=== PATIENT | female | born 1990 | race Caucasian/White ===

== ENCOUNTER 2017-01-07 20:32 | Emergency (ER) | payer OTHER ==
[~2017-01-07] VITALS: Ht 160 cm; Wt 68.2 kg
[~2017-01-07 20:32] MED LIST: BACL10TA PO; DIVA500T52 PO; DOCU250C91 PO; HYDR-4031 PO; LEVO50TA13 PO; TRAZ150 PO
[2017-01-07 21:03] LABS: BASOPHILS % (AUTO) 0.3 % (0.0-2.0); EOSINOPHILS % (AUTO) 0.1 % (1.0-6.0); HEMATOCRIT 43.7 % (36-46); HEMOGLOBIN 14.6 g/dL (12.0-16.0); LYMPHOCYTES # (AUTO) 1.6 K/uL (1.0-4.8); LYMPHOCYTES % (AUTO) 15.4 % (22.0-44.0); MEAN CORPUSCULAR HEMOGLOBIN 30.9 pg (26.0-34.0); MEAN CORPUSCULAR HGB CONC 33.3 G/dL (31.0-37.0); MEAN CORPUSCULAR VOLUME 93 fL (80-100); MONOCYTES # (AUTO) 1.2 K/uL (0.1-1.0); MONOCYTES % (AUTO) 11.3 % (2.0-9.0); NEUTROPHILS # (AUTO) 7.6 K/uL (1.8-7.7); NEUTROPHILS % (AUTO) 72.9 % (40.0-70.0); PLATELET COUNT (AUTO) 177 K/uL (150-450); RED BLOOD CELL COUNT(AUTO) 4.71 MIL/uL (4.00-5.20); RED CELL DISTRIBUTION WIDTH 13.9 % (11.5-14.5); WHITE BLOOD COUNT (AUTO) 10.4 K/uL (4.5-11.0)
[2017-01-07 21:14] LABS: ANION GAP 9 mmol/L (8-16); CALCIUM, TOTAL 8.8 mg/dL (8.8-10.5); CARBON DIOXIDE 25 mmol/L (22-29); CHLORIDE 108 mmol/L (98-107); CREATININE 1.43 mg/dL (0.60-1.30); GLOMERULAR FILTR. RATE CALC 44 mL/min (>60); POTASSIUM 4.9 mmol/L (3.5-5.1); SODIUM SERUM 142 mmol/L (136-145); UREA NITROGEN, BLOOD 26 mg/dL (7-18)
[2017-01-07 21:20] LABS: ALANINE AMINOTRANSFERASE 25 U/L (12-78); ALBUMIN 3.3 g/dL (3.4-5.0); ASPARTATE AMINOTRANSFERASE 18 U/L (15-37); BILIRUBIN,TOTAL 0.2 mg/dL (0.1-1.0); TOTAL PROTEIN, SERUM 6.8 g/dL (6.4-8.2); VALPROIC ACID 60 mcg/mL (50-100)
[2017-01-07] MEDS ORDERED: BENZ1TAB10 PO (21:30)
[2017-01-07] MEDS ORDERED: MEDR150V IM (21:30)
[2017-01-07] MEDS ORDERED: ONDA4 PO (21:30)
[2017-01-07] MEDS ORDERED: DOXY50CA7 PO (21:30)
[2017-01-07] MEDS ORDERED: TOPI25 PO (21:30)
[2017-01-07] MEDS ORDERED: ALBU8.5H IH (21:30)
[2017-01-07] MEDS ORDERED: MOME13HF IH (21:30)
[2017-01-07] MEDS ORDERED: QUET200T PO (21:30)
[2017-01-07] MEDS ORDERED: CETI-193 PO (21:30)
[2017-01-07] MEDS ORDERED: LOPE2 PO (21:30)
[2017-01-07] MEDS ORDERED: FLUV50 PO (21:30)
[2017-01-07] MEDS ORDERED: FLUT16H NASAL (21:30)
[2017-01-07] MEDS ORDERED: PANT20TA12 PO (21:30)
[2017-01-07 22:13] VITALS: BP 119/80
[2017-01-07] MEDS ORDERED: LORazepam 2 MG TABLET PO ONE (22:30)
== END 2017-01-07 23:14 | disposition home or self-care (01) ==
LOC: EMS 20:34
DX: F69 Unspecified disorder of adult personality and behavior (principal); R45.4 Irritability and anger; F41.9 Anxiety disorder, unspecified; F31.9 Bipolar disorder, unspecified; E78.00 Pure hypercholesterolemia, unspecified; I10 Essential (primary) hypertension; F20.9 Schizophrenia, unspecified; Z88.8 Allergy status to other drugs, medicaments and biological substances; Z91.013 Allergy to seafood
CPT/HCPCS: 36415; 80053; 80164; 80307; 84703; 85025; 99285; G0480

== ENCOUNTER 2017-07-17 07:09 | Inpatient (IN) | payer MEDICAID, OTHER ==
[~2017-07-17] VITALS: Ht 160 cm; Wt 88.9 kg
[~2017-07-17 07:09] MED LIST changes: +ALBU8.5H8 IH; +BENZ1TAB10 PO; +CETI-193 PO; +DOXY50CA7 PO; +FLUT16H NASAL; +FLUV50 PO; +LOPE2 PO; +MEDR150V IM; +MOME13HF IH; +ONDA4 PO; +PANT20TA12 PO; +QUET200T PO; +TOPI25 PO
[2017-07-17] MEDS ORDERED: DOCU250C91 PO (07:27)
[2017-07-17] MEDS ORDERED: ALBU8.5H8 IH (07:27)
[2017-07-17] MEDS ORDERED: MOME13HF IH (07:27)
[2017-07-17] MEDS ORDERED: GABA-531 PO (07:27)
[2017-07-17] MEDS ORDERED: CLOT30SO2 TP (07:27)
[2017-07-17 07:39] LABS: BASOPHILS # (AUTO) 0.04 K/uL (0.00-0.20); BASOPHILS % (AUTO) 0.6 % (0.0-2.0); EOSINOPHILS # (AUTO) 0.02 K/uL (0.00-0.70); EOSINOPHILS % (AUTO) 0.35 % (1.0-6.0); HEMATOCRIT 43.7 % (36-46); HEMOGLOBIN 14.7 g/dL (12.0-16.0); LYMPHOCYTES # (AUTO) 2.2 K/uL (1.0-4.8); LYMPHOCYTES % (AUTO) 36.3 % (22.0-44.0); MEAN CORPUSCULAR HEMOGLOBIN 30.7 pg (26.0-34.0); MEAN CORPUSCULAR HGB CONC 33.7 G/dL (31.0-37.0); MEAN CORPUSCULAR VOLUME 91 fL (80-100); MONOCYTES # (AUTO) 0.5 K/uL (0.1-1.0); MONOCYTES % (AUTO) 7.7 % (2.0-9.0); NEUTROPHILS # (AUTO) 3.3 K/uL (1.8-7.7); PLATELET COUNT (AUTO) 178 K/uL (150-450); RED BLOOD CELL COUNT(AUTO) 4.79 MIL/uL (4.00-5.20); RED CELL DISTRIBUTION WIDTH 12.7 % (11.5-14.5); WHITE BLOOD COUNT (AUTO) 6.1 K/uL (4.5-11.0)
[2017-07-17 08:02] LABS: ANION GAP 10 mmol/L (8-16); CALCIUM, TOTAL 9.1 mg/dL (8.8-10.5); CARBON DIOXIDE 23 mmol/L (22-29); CHLORIDE 111 mmol/L (98-107); CREATININE 1.34 mg/dL (0.60-1.30); GLOMERULAR FILTR. RATE CALC 47 mL/min (>60); POTASSIUM 4.3 mmol/L (3.5-5.1); SODIUM SERUM 144 mmol/L (136-145); UREA NITROGEN, BLOOD 25 mg/dL (7-18)
[2017-07-17 08:03] LABS: ALANINE AMINOTRANSFERASE 19 U/L (12-78); ALBUMIN 3.5 g/dL (3.4-5.0); ASPARTATE AMINOTRANSFERASE 11 U/L (15-37); BILIRUBIN,TOTAL 0.2 mg/dL (0.1-1.0); TOTAL PROTEIN, SERUM 7.3 g/dL (6.4-8.2)
[2017-07-17] MEDS ORDERED: LORazepam 2 MG TABLET PO ONE (10:15)
[2017-07-17] MEDS ORDERED: HALOPERIDOL 5 MG TABLET PO PRN (12:15)
[2017-07-17] MEDS ORDERED: ZOLPIDEM TARTRATE 10 MG TABLET PO PRN (12:15)
[2017-07-17 12:47] LABS: CHOL/HDL RATIO 2.7 (3.9-5.7)
[2017-07-17] MEDS: GABAPENTIN 300 MG CAPSULE PO SCH (15:39)
[2017-07-17] MEDS: DIVALPROEX SODIUM 500 MG ER TABLET PO SCH (18:15)
[2017-07-17 18:26] VITALS: BP 118/91
[2017-07-17] MEDS: TraZODone HCL 150 MG TABLET PO SCH (20:43)
[2017-07-17] MEDS: QUEtiapine FUMARATE 200 MG TABLET PO SCH (20:43)
[2017-07-17] MEDS ORDERED: ALBUTEROL SULFATE HFA 90 MCG/PUFF 8 GM INHALER IH PRN (20:45)
[2017-07-18 06:47] VITALS: BP 120/88
[2017-07-18] MEDS: DIVALPROEX SODIUM 500 MG ER TABLET PO SCH ×2 (09:08→16:36)
[2017-07-18] MEDS: TOPIRAMATE 25 MG TABLET PO SCH (09:08)
[2017-07-18] MEDS: GABAPENTIN 300 MG CAPSULE PO SCH ×3 (09:08→16:36)
[2017-07-18 09:19] VITALS: BP 101/54
[2017-07-18] MEDS ORDERED: IBUPROFEN 400 MG TABLET PO PRN (16:30)
[2017-07-18] MEDS: BENZOCAINE/MENTHOL LOZENGE PO PRN (16:35)
[2017-07-18] MEDS: ALBUTEROL SULFATE HFA 90 MCG/PUFF 8 GM INHALER IH PRN (16:36)
[2017-07-18 17:12] VITALS: BP 100/69
[2017-07-18 18:26] VITALS: BP 106/70
[2017-07-18] MEDS: ACETAMINOPHEN 325 MG TABLET PO PRN (18:26)
[2017-07-18] MEDS: TraZODone HCL 150 MG TABLET PO SCH (20:39)
[2017-07-18] MEDS: QUEtiapine FUMARATE 200 MG TABLET PO SCH (20:39)
[2017-07-19] MEDS: DIVALPROEX SODIUM 500 MG ER TABLET PO SCH ×2 (08:26→16:31)
[2017-07-19] MEDS: GABAPENTIN 300 MG CAPSULE PO SCH ×3 (08:26→16:31)
[2017-07-19] MEDS: TOPIRAMATE 25 MG TABLET PO SCH (08:26)
[2017-07-19 08:41] VITALS: BP 104/67
[2017-07-19] MEDS: ACETAMINOPHEN 325 MG TABLET PO PRN (09:52)
[2017-07-19 09:56] LABS: ALBUMIN 3.7 g/dL (3.4-5.0); BILIRUBIN,TOTAL 0.3 mg/dL (0.1-1.0); CALCIUM, TOTAL 9.1 mg/dL (8.8-10.5); CREATININE 1.51 mg/dL (0.60-1.30); POTASSIUM 4.6 mmol/L (3.5-5.1); THYROID STIMULATING HORMONE 6.42 uIU/mL (0.36-3.74); TOTAL PROTEIN, SERUM 7.8 g/dL (6.4-8.2)
[2017-07-19 16:31] VITALS: BP 115/84
[2017-07-19] MEDS: LORazepam 2 MG TABLET PO PRN (17:38)
[2017-07-19] MEDS: ALBUTEROL SULFATE HFA 90 MCG/PUFF 8 GM INHALER IH PRN (17:39)
[2017-07-19] MEDS: QUEtiapine FUMARATE 200 MG TABLET PO SCH (20:27)
[2017-07-19] MEDS: TraZODone HCL 150 MG TABLET PO SCH (20:27)
[2017-07-20 06:46] VITALS: BP 120/71
[2017-07-20 08:34] VITALS: BP 99/61
[2017-07-20] MEDS: TOPIRAMATE 25 MG TABLET PO SCH (08:37)
[2017-07-20] MEDS: GABAPENTIN 300 MG CAPSULE PO SCH ×3 (08:37→16:38)
[2017-07-20] MEDS: DIVALPROEX SODIUM 500 MG ER TABLET PO SCH ×2 (08:37→16:38)
[2017-07-20] MEDS: LORazepam 2 MG TABLET PO PRN (12:31)
[2017-07-20] MEDS: ALBUTEROL SULFATE HFA 90 MCG/PUFF 8 GM INHALER IH PRN (12:32)
[2017-07-20 16:17] VITALS: BP 97/71
[2017-07-20] MEDS ORDERED: LOPERAMIDE HCL 2 MG CAPSULE PO PRN (17:30)
[2017-07-20] MEDS: TraZODone HCL 150 MG TABLET PO SCH (20:13)
[2017-07-20] MEDS: QUEtiapine FUMARATE 200 MG TABLET PO SCH (20:13)
[2017-07-21 03:55] VITALS: BP 102/74
[2017-07-21] MEDS: ALBUTEROL SULFATE HFA 90 MCG/PUFF 8 GM INHALER IH PRN (04:00)
[2017-07-21 07:20] LABS: CALCIUM, TOTAL 8.9 mg/dL (8.8-10.5); CREATININE 1.48 mg/dL (0.60-1.30); POTASSIUM 4.8 mmol/L (3.5-5.1)
[2017-07-21 08:22] VITALS: BP 117/58
[2017-07-21] MEDS: GABAPENTIN 300 MG CAPSULE PO SCH ×3 (08:32→16:26)
[2017-07-21] MEDS: TOPIRAMATE 25 MG TABLET PO SCH (08:32)
[2017-07-21] MEDS: DIVALPROEX SODIUM 500 MG ER TABLET PO SCH ×2 (08:32→16:26)
[2017-07-21] MEDS: LORazepam 2 MG TABLET PO PRN ×2 (08:33→16:26)
[2017-07-21] MEDS: BENZOCAINE/MENTHOL LOZENGE PO PRN (11:25)
[2017-07-21 16:31] VITALS: BP 110/71
[2017-07-21] MEDS: TraZODone HCL 150 MG TABLET PO SCH (20:15)
[2017-07-21] MEDS: QUEtiapine FUMARATE 200 MG TABLET PO SCH (20:15)
[2017-07-22 06:11] VITALS: BP 112/72
[2017-07-22] MEDS: ACETAMINOPHEN 325 MG TABLET PO PRN (06:54)
[2017-07-22 09:12] VITALS: BP 93/61
[2017-07-22] MEDS ORDERED: ALBU8HFA IH (09:59)
[2017-07-22] MEDS: DIVALPROEX SODIUM 500 MG ER TABLET PO SCH (10:02)
[2017-07-22] MEDS: GABAPENTIN 300 MG CAPSULE PO SCH ×2 (10:02→12:41)
[2017-07-22] MEDS: TOPIRAMATE 25 MG TABLET PO SCH (10:02)
[2017-07-22] MEDS: ALBUTEROL SULFATE HFA 90 MCG/PUFF 8 GM INHALER IH PRN (10:14)
== END 2017-07-22 13:15 | disposition home or self-care (01) | DRG 750 ==
LOC: EMS 07:10 → B3A 17:14
PROVIDERS: ADMIT Psychiatry & Neurology Psychiatry; ATTEND Psychiatry & Neurology Psychiatry
DX: F20.0 Paranoid schizophrenia (principal); N17.9 Acute kidney failure, unspecified; I10 Essential (primary) hypertension; E03.9 Hypothyroidism, unspecified; E78.00 Pure hypercholesterolemia, unspecified; F31.9 Bipolar disorder, unspecified; J45.909 Unspecified asthma, uncomplicated; F19.10 Other psychoactive substance abuse, uncomplicated; Z88.8 Allergy status to other drugs, medicaments and biological substances
CPT/HCPCS: 84439; 84443; 99285; G0480; J3535

== ENCOUNTER 2017-08-12 16:02 | Inpatient (IN) | payer MEDICAID, OTHER ==
[~2017-08-12] VITALS: Ht 160 cm; Wt 91.3 kg
[~2017-08-12 16:02] MED LIST changes: -ALBU8.5H8 IH; +ALBU8HFA IH; -BACL10TA PO; -BENZ1TAB10 PO; -CETI-193 PO; -DOCU250C91 PO; -DOXY50CA7 PO; -FLUT16H NASAL; -FLUV50 PO; +GABA-531 PO; -HYDR-4031 PO; -LEVO50TA13 PO; -LOPE2 PO; -MEDR150V IM; -MOME13HF IH; -ONDA4 PO; -PANT20TA12 PO
[2017-08-12] MEDS ORDERED: QUET200T PO (16:26)
[2017-08-12 16:39] LABS: BASOPHILS # (AUTO) 0.02 K/uL (0.00-0.20); BASOPHILS % (AUTO) 0.2 % (0.0-2.0); EOSINOPHILS # (AUTO) 0.03 K/uL (0.00-0.70); EOSINOPHILS % (AUTO) 0.33 % (1.0-6.0); HEMATOCRIT 43.1 % (36-46); HEMOGLOBIN 14.3 g/dL (12.0-16.0); LYMPHOCYTES # (AUTO) 2.8 K/uL (1.0-4.8); LYMPHOCYTES % (AUTO) 30.1 % (22.0-44.0); MEAN CORPUSCULAR HEMOGLOBIN 30.6 pg (26.0-34.0); MEAN CORPUSCULAR HGB CONC 33.2 G/dL (31.0-37.0); MEAN CORPUSCULAR VOLUME 92 fL (80-100); MONOCYTES # (AUTO) 0.8 K/uL (0.1-1.0); MONOCYTES % (AUTO) 9.1 % (2.0-9.0); NEUTROPHILS # (AUTO) 5.5 K/uL (1.8-7.7); NEUTROPHILS % (AUTO) 60.3 % (40.0-70.0); PLATELET COUNT (AUTO) 199 K/uL (150-450); RED BLOOD CELL COUNT(AUTO) 4.67 MIL/uL (4.00-5.20); WHITE BLOOD COUNT (AUTO) 9.2 K/uL (4.5-11.0)
[2017-08-12 16:55] LABS: ANION GAP 10 mmol/L (8-16); CALCIUM, TOTAL 8.7 mg/dL (8.8-10.5); CARBON DIOXIDE 25 mmol/L (22-29); CHLORIDE 107 mmol/L (98-107); CREATININE 1.64 mg/dL (0.60-1.30); GLOMERULAR FILTR. RATE CALC 37 mL/min (>60); POTASSIUM 4.5 mmol/L (3.5-5.1); SODIUM SERUM 142 mmol/L (136-145); UREA NITROGEN, BLOOD 28 mg/dL (7-18)
[2017-08-12 16:58] LABS: ALANINE AMINOTRANSFERASE 16 U/L (12-78); ALBUMIN 3.6 g/dL (3.4-5.0); ASPARTATE AMINOTRANSFERASE 22 U/L (15-37); BILIRUBIN,TOTAL 0.2 mg/dL (0.1-1.0); TOTAL PROTEIN, SERUM 7.4 g/dL (6.4-8.2)
[2017-08-12] MEDS ORDERED: LORazepam 1 MG TABLET PO ONE (17:45)
[2017-08-12] MEDS ORDERED: ACETAMINOPHEN 325 MG TABLET PO ONE (17:45)
[2017-08-12] MEDS: ZOLPIDEM TARTRATE 10 MG TABLET PO PRN (19:41)
[2017-08-12] MEDS: HALOPERIDOL 5 MG TABLET PO PRN (19:42)
[2017-08-12 21:52] VITALS: BP 108/64
[2017-08-12] MEDS ORDERED: PNEUMOCOCCAL VACCINE POLYVALENT 0.5 ML VIAL [PPSV23] IM ONE (22:30)
[2017-08-12] MEDS ORDERED: INFLUENZA VIRUS VACCINE QVS 2017-18 (3YR+)/PF 60 MCG/0.5 ML SYRINGE IM ONE (22:30)
[2017-08-13 08:00] VITALS: BP 107/61
[2017-08-13] MEDS ORDERED: ALBUTEROL SULFATE HFA 90 MCG/PUFF 8 GM INHALER IH SCH (09:00)
[2017-08-13 09:17] LABS: CHOL/HDL RATIO 3.5 (3.9-5.7)
[2017-08-13] MEDS: LORazepam 2 MG TABLET PO PRN ×2 (10:52→16:20)
[2017-08-13] MEDS: ALBUTEROL SULFATE HFA 90 MCG/PUFF 8 GM INHALER IH PRN (10:52)
[2017-08-13] MEDS: TOPIRAMATE 25 MG TABLET PO SCH (12:50)
[2017-08-13] MEDS: GABAPENTIN 300 MG CAPSULE PO SCH ×2 (13:50→16:20)
[2017-08-13] MEDS: DIVALPROEX SODIUM 500 MG ER TABLET PO SCH (16:20)
[2017-08-13 16:23] VITALS: BP 110/64
[2017-08-13] MEDS: TraZODone HCL 150 MG TABLET PO SCH (20:32)
[2017-08-13] MEDS: ZOLPIDEM TARTRATE 10 MG TABLET PO PRN (20:32)
[2017-08-13] MEDS: QUEtiapine FUMARATE 200 MG TABLET PO SCH (20:32)
[2017-08-14 08:37] VITALS: BP 118/74
[2017-08-14] MEDS: TOPIRAMATE 25 MG TABLET PO SCH (08:47)
[2017-08-14] MEDS: DIVALPROEX SODIUM 500 MG ER TABLET PO SCH ×2 (08:47→17:08)
[2017-08-14] MEDS: GABAPENTIN 300 MG CAPSULE PO SCH ×3 (08:47→17:08)
[2017-08-14 16:00] VITALS: BP 122/68
[2017-08-14] MEDS: TraZODone HCL 150 MG TABLET PO SCH (20:37)
[2017-08-14] MEDS: QUEtiapine FUMARATE 200 MG TABLET PO SCH (20:37)
[2017-08-15] MEDS: LEVOTHYROXINE SODIUM 50 MCG TABLET PO SCH (06:08)
[2017-08-15] MEDS: TOPIRAMATE 25 MG TABLET PO SCH (08:21)
[2017-08-15] MEDS: DIVALPROEX SODIUM 500 MG ER TABLET PO SCH ×2 (08:21→17:59)
[2017-08-15] MEDS: GABAPENTIN 300 MG CAPSULE PO SCH ×3 (08:21→17:59)
[2017-08-15 08:38] LABS: CALCIUM, TOTAL 8.8 mg/dL (8.8-10.5); CREATININE 1.38 mg/dL (0.60-1.30); POTASSIUM 4.2 mmol/L (3.5-5.1)
[2017-08-15 08:47] VITALS: BP 120/69
[2017-08-15] MEDS: ALBUTEROL SULFATE HFA 90 MCG/PUFF 8 GM INHALER IH PRN (09:50)
[2017-08-15] MEDS: LORazepam 2 MG TABLET PO PRN (14:15)
[2017-08-15] MEDS: HALOPERIDOL 5 MG TABLET PO PRN (17:59)
[2017-08-15 18:16] VITALS: BP 109/70
[2017-08-15] MEDS: QUEtiapine FUMARATE 200 MG TABLET PO SCH (21:45)
[2017-08-15] MEDS: TraZODone HCL 150 MG TABLET PO SCH (21:45)
[2017-08-15] MEDS: ZOLPIDEM TARTRATE 10 MG TABLET PO PRN (21:45)
[2017-08-16 04:10] VITALS: BP 119/67
[2017-08-16] MEDS: LEVOTHYROXINE SODIUM 50 MCG TABLET PO SCH (06:43)
[2017-08-16] MEDS: DIVALPROEX SODIUM 500 MG ER TABLET PO SCH (08:16)
[2017-08-16] MEDS: GABAPENTIN 300 MG CAPSULE PO SCH ×2 (08:16→12:22)
[2017-08-16] MEDS: TOPIRAMATE 25 MG TABLET PO SCH (08:16)
[2017-08-16 08:26] VITALS: BP 111/64
[2017-08-16] MEDS: LORazepam 2 MG TABLET PO PRN (10:12)
[2017-08-16] MEDS ORDERED: LEVO50TA11 PO (11:04)
== END 2017-08-16 14:20 | disposition home or self-care (01) | DRG 750 ==
LOC: EEVIPCON 16:04 → EMS 16:04 → B3A 20:11
PROVIDERS: ADMIT Psychiatry & Neurology Psychiatry; ATTEND Psychiatry & Neurology Psychiatry
PROC: 3E0234Z Introduction of Serum, Toxoid and Vaccine into Muscle, Percutaneous Approach (ICD-10-PCS; principal; 2017-08-13)
PROC: 3E0234Z Introduction of Serum, Toxoid and Vaccine into Muscle, Percutaneous Approach (ICD-10-PCS; 2017-08-13)
DX: F25.9 Schizoaffective disorder, unspecified (principal); R45.851 Suicidal ideations; N18.3 Chronic kidney disease, stage 3 (moderate); I12.9 Hypertensive chronic kidney disease with stage 1 through stage 4 chronic kidney disease, or unspecified chronic kidney disease; G80.9 Cerebral palsy, unspecified; E78.00 Pure hypercholesterolemia, unspecified; F41.9 Anxiety disorder, unspecified; F31.9 Bipolar disorder, unspecified; J45.909 Unspecified asthma, uncomplicated; E03.9 Hypothyroidism, unspecified; Z88.8 Allergy status to other drugs, medicaments and biological substances; Z91.013 Allergy to seafood; Z79.899 Other long term (current) drug therapy; Z23 Encounter for immunization
CPT/HCPCS: 84439; 84443; 87081; 90471; 99285; G0480; J3535

== ENCOUNTER 2017-10-25 16:14 | Inpatient (IN) | payer MEDICAID, OTHER ==
[~2017-10-25] VITALS: Ht 160 cm; Wt 92.1 kg
[~2017-10-25 16:14] MED LIST changes: -ALBU8HFA IH; +LEVO50TA11 PO
[2017-10-25] MEDS ORDERED: QUEtiapine FUMARATE 100 MG TABLET PO ONE (19:00)
[2017-10-25] MEDS ORDERED: LORazepam 2 MG TABLET PO ONE (19:00)
[2017-10-25] MEDS ORDERED: ZOLPIDEM TARTRATE 10 MG TABLET PO PRN (19:15)
[2017-10-25] MEDS ORDERED: OLANZapine 5 MG RAPDIS TABLET PO PRN (19:15)
[2017-10-25] MEDS ORDERED: LORazepam 2 MG TABLET PO PRN (19:15)
[2017-10-25 19:17] LABS: BASOPHILS # (AUTO) 0.17 K/uL (0.00-0.20); BASOPHILS % (AUTO) 1.6 % (0.0-2.0); EOSINOPHILS # (AUTO) 0.03 K/uL (0.00-0.70); EOSINOPHILS % (AUTO) 0.29 % (1.0-6.0); HEMATOCRIT 40.3 % (36-46); HEMOGLOBIN 13.3 g/dL (12.0-16.0); LYMPHOCYTES % (AUTO) 27.9 % (22.0-44.0); MEAN CORPUSCULAR HEMOGLOBIN 30.4 pg (26.0-34.0); MEAN CORPUSCULAR HGB CONC 33.1 G/dL (31.0-37.0); MEAN CORPUSCULAR VOLUME 92 fL (80-100); MONOCYTES # (AUTO) 0.7 K/uL (0.1-1.0); MONOCYTES % (AUTO) 6.8 % (2.0-9.0); NEUTROPHILS # (AUTO) 6.8 K/uL (1.8-7.7); NEUTROPHILS % (AUTO) 63.4 % (40.0-70.0); PLATELET COUNT (AUTO) 185 K/uL (150-450); RED BLOOD CELL COUNT(AUTO) 4.39 MIL/uL (4.00-5.20); RED CELL DISTRIBUTION WIDTH 12.7 % (11.5-14.5)
[2017-10-25 19:20] LABS: AMPHET/METH SCREEN,URINE NEGATIVE (NEGATIVE); BARBITURATE SCREEN, URINE NEGATIVE (NEGATIVE); BENZODIAZEPINES SCREEN,URINE NEGATIVE (NEGATIVE); CANNABINOID SCREEN,URINE NEGATIVE (NEGATIVE); COCAINE SCREEN,URINE NEGATIVE (NEGATIVE); METHADONE SCREEN, URINE NEGATIVE (NEGATIVE); OPIATE SCREEN,URINE NEGATIVE (NEGATIVE)
[2017-10-25 19:23] LABS: PHENCYCLIDINE SCREEN,URINE NEGATIVE (NEGATIVE)
[2017-10-25 19:36] LABS: ANION GAP 7 mmol/L (8-16); CALCIUM, TOTAL 8.7 mg/dL (8.8-10.5); CARBON DIOXIDE 25 mmol/L (22-29); CHLORIDE 111 mmol/L (98-107); CREATININE 1.65 mg/dL (0.60-1.30); GLOMERULAR FILTR. RATE CALC 37 mL/min (>60); GLUCOSE,RANDOM 108 mg/dL (70-110); POTASSIUM 4.3 mmol/L (3.5-5.1); SODIUM SERUM 143 mmol/L (136-145); UREA NITROGEN, BLOOD 34 mg/dL (7-18)
[2017-10-25 19:43] LABS: ALANINE AMINOTRANSFERASE 18 U/L (12-78); ALBUMIN 3.2 g/dL (3.4-5.0); ALKALINE PHOSPHATASE 82 U/L (46-116); ASPARTATE AMINOTRANSFERASE 8 U/L (15-37); BILIRUBIN,TOTAL 0.2 mg/dL (0.1-1.0); TOTAL PROTEIN, SERUM 6.8 g/dL (6.4-8.2)
[2017-10-25] MEDS: TraZODone HCL 150 MG TABLET PO SCH (20:44)
[2017-10-25] MEDS: QUEtiapine FUMARATE 200 MG TABLET PO SCH (20:44)
[2017-10-25] MEDS: DIVALPROEX SODIUM 500 MG ER TABLET PO SCH (20:44)
[2017-10-25 21:00] VITALS: BP 111/72
[2017-10-25] MEDS ORDERED: -PHARMACY VACCINE NOTE- MISC ONE (21:30)
[2017-10-25] MEDS ORDERED: ALBUTEROL SULFATE HFA 90 MCG/PUFF 8 GM INHALER IH PRN (21:30)
[2017-10-26] MEDS: LEVOTHYROXINE SODIUM 50 MCG TABLET PO SCH (06:57)
[2017-10-26 07:28] LABS: CHOL/HDL RATIO 3.5 (3.9-5.7)
[2017-10-26 08:52] VITALS: BP 125/64
[2017-10-26] MEDS ORDERED: MAG HYDROX/AL HYDROX/SIMETH ES 30 ML SUSPENSION UDCUP PO PRN (09:00)
[2017-10-26] MEDS ORDERED: PROMETHAZINE HCL 25 MG TABLET PO PRN (09:00)
[2017-10-26] MEDS ORDERED: HydrOXYzine PAMOATE 50 MG CAPSULE PO PRN (09:00)
[2017-10-26] MEDS ORDERED: LOPERAMIDE HCL 2 MG CAPSULE PO PRN (09:00)
[2017-10-26] MEDS ORDERED: MAGNESIUM HYDROXIDE SUSPENSION 30 ML UDCUP PO PRN (09:00)
[2017-10-26] MEDS ORDERED: TUBERCULIN, PURIFIED PROTEIN DERIVATIVE 5 TU/0.1 ML SYG ID ONE (09:00)
[2017-10-26] MEDS ORDERED: GuaiFENesin/D-METHORPHAN [SUGAR-FREE] 200-20MG/10 ML SYRUP UDCUP PO PRN (09:00)
[2017-10-26] MEDS ORDERED: QUEtiapine FUMARATE 100 MG TABLET PO PRN (09:00)
[2017-10-26] MEDS: DIVALPROEX SODIUM 500 MG ER TABLET PO SCH ×2 (09:47→16:25)
[2017-10-26] MEDS: GABAPENTIN 300 MG CAPSULE PO SCH ×3 (09:47→16:25)
[2017-10-26] MEDS: FOLIC ACID 1 MG TABLET PO SCH (09:48)
[2017-10-26] MEDS: TOPIRAMATE 25 MG TABLET PO SCH (09:48)
[2017-10-26] MEDS: MULTIVITAMINS WITH MINERALS, THERAPEUTIC TABLET PO SCH (09:48)
[2017-10-26] MEDS: THIAMINE HCL 100 MG TABLET PO SCH ×2 (09:48→16:25)
[2017-10-26 16:00] VITALS: BP 117/68
[2017-10-26] MEDS: TraZODone HCL 150 MG TABLET PO SCH (20:24)
[2017-10-26] MEDS: QUEtiapine FUMARATE 200 MG TABLET PO SCH (20:24)
[2017-10-27] MEDS: LEVOTHYROXINE SODIUM 50 MCG TABLET PO SCH (06:18)
[2017-10-27] MEDS: DIVALPROEX SODIUM 500 MG ER TABLET PO SCH ×2 (08:52→16:09)
[2017-10-27] MEDS: GABAPENTIN 300 MG CAPSULE PO SCH ×3 (08:53→16:09)
[2017-10-27] MEDS: THIAMINE HCL 100 MG TABLET PO SCH ×2 (08:53→16:09)
[2017-10-27] MEDS: MULTIVITAMINS WITH MINERALS, THERAPEUTIC TABLET PO SCH (08:54)
[2017-10-27] MEDS: TOPIRAMATE 25 MG TABLET PO SCH (08:54)
[2017-10-27] MEDS: FOLIC ACID 1 MG TABLET PO SCH (08:54)
[2017-10-27] MEDS ORDERED: TOPI25 PO (09:01)
[2017-10-27] MEDS ORDERED: QUET200T29 PO (09:01)
[2017-10-27] MEDS ORDERED: TRAZ150 PO (09:01)
[2017-10-27] MEDS ORDERED: GABA-531 PO (09:01)
[2017-10-27] MEDS ORDERED: DIVA500T52 PO (09:01)
[2017-10-27 09:20] VITALS: BP 101/86
[2017-10-27] MEDS: ACETAMINOPHEN 325 MG TABLET PO PRN (09:29)
[2017-10-27 10:20] VITALS: BP 112/77
[2017-10-27 17:52] VITALS: BP 114/76
[2017-10-27] MEDS: TraZODone HCL 150 MG TABLET PO SCH (20:40)
[2017-10-27] MEDS ORDERED: QUEtiapine FUMARATE 300 MG TABLET PO SCH (21:00)
[2017-10-28] MEDS: LEVOTHYROXINE SODIUM 50 MCG TABLET PO SCH (06:59)
[2017-10-28] MEDS ORDERED: MULT-723 PO (08:37)
[2017-10-28] MEDS: MULTIVITAMINS WITH MINERALS, THERAPEUTIC TABLET PO SCH (08:57)
[2017-10-28] MEDS: DIVALPROEX SODIUM 500 MG ER TABLET PO SCH (08:58)
[2017-10-28] MEDS: THIAMINE HCL 100 MG TABLET PO SCH (08:58)
[2017-10-28] MEDS: GABAPENTIN 300 MG CAPSULE PO SCH ×2 (08:58→13:00)
[2017-10-28] MEDS: TOPIRAMATE 25 MG TABLET PO SCH (08:58)
[2017-10-28] MEDS: FOLIC ACID 1 MG TABLET PO SCH (08:58)
[2017-10-28 09:24] VITALS: BP 120/80
[2017-10-28 11:11] VITALS: BP 112/74
[2017-10-28] MEDS: ACETAMINOPHEN 325 MG TABLET PO PRN (11:11)
== END 2017-10-28 13:15 | disposition home or self-care (01) | DRG 750 ==
LOC: EMS 16:15 → 3EI 19:30
PROVIDERS: ADMIT Psychiatry & Neurology Psychiatry; ATTEND Psychiatry & Neurology Psychiatry
DX: F25.9 Schizoaffective disorder, unspecified (principal); F31.9 Bipolar disorder, unspecified; G80.9 Cerebral palsy, unspecified; Z88.8 Allergy status to other drugs, medicaments and biological substances
CPT/HCPCS: 99285; G0480

== ENCOUNTER 2018-12-04 13:48 | Inpatient (IN) | payer MEDICAID ==
[~2018-12-04] VITALS: Ht 160 cm; Wt 106.6 kg
[~2018-12-04 13:48] MED LIST changes: +MULT-723 PO; -QUET200T PO; +QUET200T29 PO
[2018-12-04] MEDS ORDERED: ZOLPIDEM TARTRATE 10 MG TABLET PO PRN (20:00)
[2018-12-04] MEDS ORDERED: DIPH25 PO (20:09)
[2018-12-04] MEDS ORDERED: LEVO50 PO (20:09)
[2018-12-04] MEDS ORDERED: TRAZ150 PO (20:09)
[2018-12-04] MEDS ORDERED: MELA3TAB66 PO (20:09)
[2018-12-04] MEDS ORDERED: TOPI25 PO (20:09)
[2018-12-04] MEDS ORDERED: GABA-533 PO (20:09)
[2018-12-04] MEDS ORDERED: DIVA500T52 PO (20:09)
[2018-12-04] MEDS ORDERED: MULT-1192 PO (20:09)
[2018-12-04] MEDS ORDERED: QUET300T2 PO (20:09)
[2018-12-04] MEDS ORDERED: PRAZ1 PO (20:09)
[2018-12-04] MEDS ORDERED: IBUP-2070 PO (20:09)
[2018-12-04] MEDS ORDERED: CHLO50 PO (20:09)
[2018-12-04] MEDS ORDERED: BENZ1TAB10 PO (20:09)
[2018-12-04 20:55] VITALS: BP 127/92
[2018-12-04] MEDS ORDERED: PETROLATUM,WHITE 71 GM JELLY TP PRN (21:00)
[2018-12-04] MEDS ORDERED: ALBUTEROL SULFATE HFA 90 MCG/PUFF 8 GM INHALER IH PRN (21:00)
[2018-12-04] MEDS ORDERED: ONDANSETRON HCL 4 MG TABLET PO PRN (21:00)
[2018-12-04] MEDS ORDERED: CloNIDine HCL 0.1 MG TABLET PO PRN (21:00)
[2018-12-04] MEDS ORDERED: MAG HYDROX/AL HYDROX/SIMETH ES 30 ML SUSPENSION UDCUP PO PRN (21:00)
[2018-12-04] MEDS ORDERED: DOCUSATE SODIUM 100 MG CAPSULE PO PRN (21:00)
[2018-12-04] MEDS ORDERED: LOPERAMIDE HCL 2 MG CAPSULE PO PRN (21:00)
[2018-12-04] MEDS ORDERED: MAGNESIUM HYDROXIDE SUSPENSION 30 ML UDCUP PO PRN (21:00)
[2018-12-04] MEDS ORDERED: ACETAMINOPHEN 325 MG TABLET PO PRN (21:00)
[2018-12-04] MEDS ORDERED: GuaiFENesin/D-METHORPHAN [SUGAR-FREE] 200-20MG/10 ML SYRUP UDCUP PO PRN (21:00)
[2018-12-04] MEDS: IBUPROFEN 400 MG TABLET PO PRN (21:27)
[2018-12-04] MEDS ORDERED: -PHARMACY VACCINE NOTE- MISC ONE (21:45)
[2018-12-05 06:23] VITALS: BP 125/80
[2018-12-05 08:05] LABS: BASOPHILS % (AUTO) 0.3 % (0.0-2.0); EOSINOPHILS % (AUTO) 0.9 % (1.0-6.0); HEMATOCRIT 41.3 % (36-46); HEMOGLOBIN 14.2 g/dL (12.0-16.0); LYMPHOCYTES # (AUTO) 3.3 K/uL (1.0-4.8); LYMPHOCYTES % (AUTO) 52.3 % (22.0-44.0); MEAN CORPUSCULAR HGB CONC 34.2 G/dL (31.0-37.0); MEAN CORPUSCULAR VOLUME 90 fL (80-100); MONOCYTES # (AUTO) 0.6 K/uL (0.1-1.0); MONOCYTES % (AUTO) 9.1 % (2.0-9.0); NEUTROPHILS # (AUTO) 2.4 K/uL (1.8-7.7); NEUTROPHILS % (AUTO) 37.4 % (40.0-70.0); PLATELET COUNT (AUTO) 208 K/uL (150-450); RED BLOOD CELL COUNT(AUTO) 4.57 MIL/uL (4.00-5.20); RED CELL DISTRIBUTION WIDTH 12.5 % (11.5-14.5)
[2018-12-05 08:07] VITALS: BP 108/59
[2018-12-05 08:13] LABS: ALANINE AMINOTRANSFERASE 18 U/L (12-78); ALBUMIN 2.9 g/dL (3.4-5.0); ALKALINE PHOSPHATASE 84 U/L (46-116); ANION GAP 6 mmol/L (8-16); ASPARTATE AMINOTRANSFERASE 16 U/L (15-37); BILIRUBIN,TOTAL 0.2 mg/dL (0.1-1.0); CARBON DIOXIDE 27 mmol/L (22-29); CHLORIDE 106 mmol/L (98-107); CHOL/HDL RATIO 3.2 (3.9-5.7); CHOLESTEROL 149 mg/dL (131-200); CREATININE 1.34 mg/dL (0.60-1.30); FREE T4 (FREE THYROXINE) 0.84 ng/dL (0.76-1.46); GLOMERULAR FILTR. RATE CALC 46 mL/min (>60); GLUCOSE,RANDOM 88 mg/dL (70-110); HCG,QUANTITATIVE < 1 mIU/mL (0-6); HDL CHOLESTEROL 46 mg/dL (40-60); LDL CHOL (CALC.) 82 mg/dL (0-130); POTASSIUM 4.4 mmol/L (3.5-5.1); SODIUM SERUM 139 mmol/L (136-145); THYROID STIMULATING HORMONE 4.75 uIU/mL (0.36-3.74); TOTAL PROTEIN, SERUM 6.6 g/dL (6.4-8.2); TRIGLYCERIDES 106 mg/dL (15-150); UREA NITROGEN, BLOOD 26 mg/dL (7-18); VALPROIC ACID 65 mcg/mL (50-100)
[2018-12-05 08:23] LABS: HEMOGLOBIN A1C 5.5 % (4.5-6.2)
[2018-12-05 11:47] VITALS: BP 112/80
[2018-12-05] MEDS: GABAPENTIN 300 MG CAPSULE PO SCH ×2 (11:47→17:01)
[2018-12-05] MEDS: IBUPROFEN 400 MG TABLET PO PRN (11:47)
[2018-12-05] MEDS: DIVALPROEX SODIUM 500 MG ER TABLET PO SCH ×2 (11:47→17:02)
[2018-12-05] MEDS: BENZTROPINE MESYLATE 1 MG TABLET PO SCH ×2 (12:01→17:01)
[2018-12-05] MEDS: QUEtiapine FUMARATE 25 MG TABLET PO SCH ×2 (13:06→17:01)
[2018-12-05 16:00] VITALS: BP 109/73
[2018-12-05 16:01] VITALS: BP 109/73
[2018-12-05] MEDS: HALOPERIDOL 5 MG TABLET PO PRN (17:01)
[2018-12-05] MEDS: LORazepam 2 MG TABLET PO PRN (17:01)
[2018-12-05] MEDS: TraZODone HCL 150 MG TABLET PO SCH (21:16)
[2018-12-05] MEDS: DiphenhydrAMINE HCL 25 MG CAPSULE PO SCH (21:16)
[2018-12-05] MEDS: QUEtiapine FUMARATE 300 MG TABLET PO SCH (21:16)
[2018-12-05] MEDS: PRAZOSIN HCL 1 MG CAPSULE PO SCH (21:17)
[2018-12-06 08:07] VITALS: BP 106/78
[2018-12-06] MEDS: DIVALPROEX SODIUM 500 MG ER TABLET PO SCH ×2 (08:23→16:08)
[2018-12-06] MEDS: BENZTROPINE MESYLATE 1 MG TABLET PO SCH ×2 (08:23→16:08)
[2018-12-06] MEDS: QUEtiapine FUMARATE 25 MG TABLET PO SCH ×3 (08:23→16:08)
[2018-12-06] MEDS: GABAPENTIN 300 MG CAPSULE PO SCH ×3 (08:23→16:08)
[2018-12-06 16:04] VITALS: BP 113/79
[2018-12-06] MEDS: DiphenhydrAMINE HCL 25 MG CAPSULE PO SCH (20:23)
[2018-12-06] MEDS: QUEtiapine FUMARATE 300 MG TABLET PO SCH (20:24)
[2018-12-06] MEDS: TraZODone HCL 150 MG TABLET PO SCH (20:24)
[2018-12-06] MEDS: PRAZOSIN HCL 1 MG CAPSULE PO SCH (20:24)
[2018-12-07 06:41] VITALS: BP 113/78
[2018-12-07 08:00] VITALS: BP 157/74
[2018-12-07] MEDS: LORazepam 2 MG TABLET PO PRN (08:10)
[2018-12-07] MEDS: HALOPERIDOL 5 MG TABLET PO PRN (08:10)
[2018-12-07] MEDS: QUEtiapine FUMARATE 25 MG TABLET PO SCH ×2 (08:10→12:49)
[2018-12-07] MEDS: DIVALPROEX SODIUM 500 MG ER TABLET PO SCH (08:10)
[2018-12-07] MEDS: GABAPENTIN 300 MG CAPSULE PO SCH ×2 (08:10→12:49)
[2018-12-07] MEDS: BENZTROPINE MESYLATE 1 MG TABLET PO SCH (08:10)
[2018-12-07] MEDS ORDERED: QUET25TA PO (08:12)
[2018-12-07] MEDS ORDERED: QUET300T2 PO (08:13)
== END 2018-12-07 15:50 | disposition home or self-care (01) | DRG 750 ==
LOC: B3A 19:59
PROVIDERS: ADMIT Psychiatry & Neurology Psychiatry; ATTEND Psychiatry & Neurology Psychiatry
DX: F25.0 Schizoaffective disorder, bipolar type (principal); E03.9 Hypothyroidism, unspecified; G80.9 Cerebral palsy, unspecified; J45.909 Unspecified asthma, uncomplicated; E78.5 Hyperlipidemia, unspecified; F41.9 Anxiety disorder, unspecified; I12.9 Hypertensive chronic kidney disease with stage 1 through stage 4 chronic kidney disease, or unspecified chronic kidney disease; N18.9 Chronic kidney disease, unspecified; Z23 Encounter for immunization
CPT/HCPCS: 83036; 84439; 84443; 87081; 90686; J3535

== ENCOUNTER 2019-07-23 16:51 | Inpatient (IN) | payer MEDICAID ==
[~2019-07-23] VITALS: Ht 157.5 cm; Wt 98.7 kg
[~2019-07-23 16:51] MED LIST changes: +BENZ1TAB10 PO; +DIPH25 PO; +LEVO50 PO; -LEVO50TA11 PO; -MULT-723 PO; +PRAZ1 PO; -QUET200T29 PO; +QUET25TA PO; +QUET300T2 PO; -TOPI25 PO
[2019-07-23] MEDS ORDERED: LORazepam 2 MG TABLET PO PRN (18:15)
[2019-07-23] MEDS ORDERED: ZOLPIDEM TARTRATE 10 MG TABLET PO PRN (18:15)
[2019-07-23] MEDS ORDERED: HALOPERIDOL 5 MG TABLET PO PRN (18:15)
[2019-07-23 20:44] VITALS: BP 107/63
[2019-07-23] MEDS ORDERED: CloNIDine HCL 0.1 MG TABLET PO PRN (20:45)
[2019-07-23] MEDS ORDERED: ACETAMINOPHEN 325 MG TABLET PO PRN (20:45)
[2019-07-23] MEDS ORDERED: DOCUSATE SODIUM 100 MG CAPSULE PO PRN (20:45)
[2019-07-23] MEDS ORDERED: IBUPROFEN 400 MG TABLET PO PRN (20:45)
[2019-07-23] MEDS ORDERED: ONDANSETRON HCL 4 MG TABLET PO PRN (20:45)
[2019-07-23] MEDS ORDERED: MAGNESIUM HYDROXIDE SUSPENSION 30 ML UDCUP PO PRN (20:45)
[2019-07-23] MEDS ORDERED: MAG HYDROX/AL HYDROX/SIMETH ES 30 ML SUSPENSION UDCUP PO PRN (20:45)
[2019-07-23] MEDS ORDERED: GuaiFENesin/D-METHORPHAN [SUGAR-FREE] 200-20MG/10 ML SYRUP UDCUP PO PRN (20:45)
[2019-07-23] MEDS ORDERED: LOPERAMIDE HCL 2 MG CAPSULE PO PRN (20:45)
[2019-07-23] MEDS ORDERED: NICOTINE 14 MG/24 HOUR PATCH TD PRN (20:45)
[2019-07-24 08:08] LABS: BASOPHILS % (AUTO) 0.3 % (0.0-2.0); EOSINOPHILS % (AUTO) 1.5 % (1.0-6.0); HEMATOCRIT 43.7 % (36-46); HEMOGLOBIN 14.4 g/dL (12.0-16.0); LYMPHOCYTES # (AUTO) 2.5 K/uL (1.0-4.8); LYMPHOCYTES % (AUTO) 46.3 % (22.0-44.0); MEAN CORPUSCULAR HEMOGLOBIN 30.8 pg (26.0-34.0); MEAN CORPUSCULAR VOLUME 93 fL (80-100); MONOCYTES # (AUTO) 0.6 K/uL (0.1-1.0); MONOCYTES % (AUTO) 10.4 % (2.0-9.0); NEUTROPHILS # (AUTO) 2.2 K/uL (1.8-7.7); NEUTROPHILS % (AUTO) 41.5 % (40.0-70.0); PLATELET COUNT (AUTO) 213 K/uL (150-450); RED BLOOD CELL COUNT(AUTO) 4.68 MIL/uL (4.00-5.20); RED CELL DISTRIBUTION WIDTH 13.6 % (11.5-14.5)
[2019-07-24 08:09] VITALS: BP 109/68
[2019-07-24 08:40] LABS: ALANINE AMINOTRANSFERASE 25 U/L (12-78); ALBUMIN 3.6 g/dL (3.4-5.0); ALKALINE PHOSPHATASE 72 U/L (46-116); ANION GAP 12 mmol/L (8-16); ASPARTATE AMINOTRANSFERASE 10 U/L (15-37); BILIRUBIN,TOTAL 0.4 mg/dL (0.1-1.0); CALCIUM, TOTAL 9.4 mg/dL (8.8-10.5); CARBON DIOXIDE 25 mmol/L (22-29); CHLORIDE 107 mmol/L (98-107); CHOL/HDL RATIO 3.1 (3.9-5.7); CHOLESTEROL 171 mg/dL (131-200); CREATININE 1.21 mg/dL (0.60-1.30); GLOMERULAR FILTR. RATE CALC 52 mL/min (>60); GLUCOSE,RANDOM 94 mg/dL (70-110); HCG,QUANTITATIVE < 1 mIU/mL (0-6); HDL CHOLESTEROL 55 mg/dL (40-60); LDL CHOL (CALC.) 105 mg/dL (0-130); POTASSIUM 4.5 mmol/L (3.5-5.1); SODIUM SERUM 144 mmol/L (136-145); TOTAL PROTEIN, SERUM 6.6 g/dL (6.4-8.2); TRIGLYCERIDES 57 mg/dL (15-150); UREA NITROGEN, BLOOD -3 mg/dL (7-18)
[2019-07-24] MEDS: GABAPENTIN 300 MG CAPSULE PO SCH ×2 (13:14→16:05)
[2019-07-24] MEDS: QUEtiapine FUMARATE 25 MG TABLET PO SCH (16:04)
[2019-07-24] MEDS: BENZTROPINE MESYLATE 1 MG TABLET PO SCH (16:04)
[2019-07-24] MEDS: DIVALPROEX SODIUM 500 MG DR TABLET PO SCH (16:04)
[2019-07-24 19:54] VITALS: BP 109/64
[2019-07-24] MEDS: PRAZOSIN HCL 1 MG CAPSULE PO SCH (20:13)
[2019-07-24] MEDS: DiphenhydrAMINE HCL 25 MG CAPSULE PO SCH (20:13)
[2019-07-24] MEDS: QUEtiapine FUMARATE 200 MG TABLET PO SCH (20:13)
[2019-07-25 07:00] VITALS: BP 110/65
[2019-07-25] MEDS: GABAPENTIN 300 MG CAPSULE PO SCH ×3 (08:22→16:01)
[2019-07-25] MEDS: QUEtiapine FUMARATE 25 MG TABLET PO SCH ×2 (08:22→16:07)
[2019-07-25] MEDS: DIVALPROEX SODIUM 500 MG DR TABLET PO SCH ×2 (08:22→16:01)
[2019-07-25] MEDS: BENZTROPINE MESYLATE 1 MG TABLET PO SCH ×2 (08:22→16:01)
[2019-07-25 08:25] VITALS: BP 108/64
[2019-07-25] MEDS: ALBUTEROL SULFATE HFA 90 MCG/PUFF 8 GM INHALER IH PRN (14:54)
[2019-07-25 16:20] VITALS: BP 131/59
[2019-07-25] MEDS: DiphenhydrAMINE HCL 25 MG CAPSULE PO SCH (20:10)
[2019-07-25] MEDS: QUEtiapine FUMARATE 200 MG TABLET PO SCH (20:10)
[2019-07-25] MEDS: PRAZOSIN HCL 1 MG CAPSULE PO SCH (20:10)
[2019-07-26 02:30] VITALS: BP 126/72
[2019-07-26 08:20] VITALS: BP 100/65
[2019-07-26] MEDS: QUEtiapine FUMARATE 25 MG TABLET PO SCH ×2 (09:05→16:36)
[2019-07-26] MEDS: DIVALPROEX SODIUM 500 MG DR TABLET PO SCH ×2 (09:05→16:36)
[2019-07-26] MEDS: GABAPENTIN 300 MG CAPSULE PO SCH ×3 (09:07→16:37)
[2019-07-26] MEDS: BENZTROPINE MESYLATE 1 MG TABLET PO SCH ×2 (09:07→16:36)
[2019-07-26 10:38] VITALS: BP 113/74
[2019-07-26] MEDS: ALBUTEROL SULFATE HFA 90 MCG/PUFF 8 GM INHALER IH PRN (13:29)
[2019-07-26 16:22] VITALS: BP 148/82
[2019-07-26] MEDS: PRAZOSIN HCL 1 MG CAPSULE PO SCH (20:20)
[2019-07-26] MEDS: DiphenhydrAMINE HCL 25 MG CAPSULE PO SCH (20:20)
[2019-07-26] MEDS: QUEtiapine FUMARATE 200 MG TABLET PO SCH (20:21)
[2019-07-27 06:50] VITALS: BP 140/87
[2019-07-27 08:21] VITALS: BP 118/76
[2019-07-27] MEDS: BENZTROPINE MESYLATE 1 MG TABLET PO SCH ×2 (08:59→16:04)
[2019-07-27] MEDS: QUEtiapine FUMARATE 25 MG TABLET PO SCH ×2 (09:03→16:05)
[2019-07-27] MEDS: DIVALPROEX SODIUM 500 MG DR TABLET PO SCH ×2 (09:03→16:04)
[2019-07-27] MEDS: GABAPENTIN 300 MG CAPSULE PO SCH ×3 (09:03→16:05)
[2019-07-27] MEDS: PETROLATUM,WHITE 28 GM JELLY TP PRN ×2 (10:51→21:08)
[2019-07-27 17:20] VITALS: BP 131/94
[2019-07-27] MEDS: PRAZOSIN HCL 1 MG CAPSULE PO SCH (20:06)
[2019-07-27] MEDS: QUEtiapine FUMARATE 200 MG TABLET PO SCH (20:06)
[2019-07-27] MEDS: DiphenhydrAMINE HCL 25 MG CAPSULE PO SCH (20:06)
[2019-07-28 06:31] VITALS: BP 133/95
[2019-07-28 08:04] VITALS: BP 123/89
[2019-07-28] MEDS: GABAPENTIN 300 MG CAPSULE PO SCH ×2 (08:41→12:33)
[2019-07-28] MEDS: BENZTROPINE MESYLATE 1 MG TABLET PO SCH (08:41)
[2019-07-28] MEDS: DIVALPROEX SODIUM 500 MG DR TABLET PO SCH (08:41)
[2019-07-28] MEDS: QUEtiapine FUMARATE 25 MG TABLET PO SCH (08:41)
[2019-07-28] MEDS ORDERED: DIVA-78 PO (11:09)
== END 2019-07-28 13:30 | disposition home or self-care (01) | DRG 750 ==
LOC: B3A 19:47
PROVIDERS: ADMIT Psychiatry & Neurology Psychiatry; ATTEND Psychiatry & Neurology Psychiatry
DX: F25.0 Schizoaffective disorder, bipolar type (principal); F79 Unspecified intellectual disabilities; E03.9 Hypothyroidism, unspecified; E78.5 Hyperlipidemia, unspecified; F41.9 Anxiety disorder, unspecified; I10 Essential (primary) hypertension; J45.909 Unspecified asthma, uncomplicated; R45.87 Impulsiveness
CPT/HCPCS: 83036; 84439; 84443; J3535

== ENCOUNTER 2019-10-05 19:30 | Emergency (ER) | payer MEDICAID, OTHER ==
[~2019-10-05] VITALS: Ht 160 cm; Wt 97.7 kg
[~2019-10-05 19:30] MED LIST changes: +DIVA-78 PO; -DIVA500T52 PO; -LEVO50 PO; -TRAZ150 PO
[2019-10-05] MEDS ORDERED: KETOROLAC TROMETHAMINE 60 MG/2 ML VIAL IM ONE (22:15)
[2019-10-05 22:59] VITALS: BP 126/87
== END 2019-10-06 01:09 | disposition home or self-care (01) ==
LOC: EMS 19:32
DX: S63.601A Unspecified sprain of right thumb, initial encounter (principal); F41.9 Anxiety disorder, unspecified; F31.9 Bipolar disorder, unspecified; E78.00 Pure hypercholesterolemia, unspecified; I10 Essential (primary) hypertension; F20.9 Schizophrenia, unspecified; Z88.8 Allergy status to other drugs, medicaments and biological substances; Z91.013 Allergy to seafood; W01.0XXA Fall on same level from slipping, tripping and stumbling without subsequent striking against object, initial encounter; Y93.89 Activity, other specified; Y92.89 Other specified places as the place of occurrence of the external cause; Y99.8 Other external cause status
CPT/HCPCS: 29130; 73140; 96372; 99283; J1885

== ENCOUNTER 2019-12-30 16:53 | Inpatient (IN) | payer MEDICAID, OTHER ==
[~2019-12-30] VITALS: Ht 160 cm; Wt 115.7 kg
[2019-12-30 18:08] LABS: BASOPHILS % (AUTO) 0.4 % (0.0-2.0); EOSINOPHILS % (AUTO) 0.6 % (1.0-6.0); HEMATOCRIT 37.6 % (36-46); HEMOGLOBIN 12.4 g/dL (12.0-16.0); LYMPHOCYTES # (AUTO) 2.5 K/uL (1.0-4.8); LYMPHOCYTES % (AUTO) 31.3 % (22.0-44.0); MEAN CORPUSCULAR HEMOGLOBIN 29.2 pg (26.0-34.0); MEAN CORPUSCULAR HGB CONC 32.9 G/dL (31.0-37.0); MEAN CORPUSCULAR VOLUME 89 fL (80-100); MONOCYTES # (AUTO) 0.7 K/uL (0.1-1.0); MONOCYTES % (AUTO) 8.4 % (2.0-9.0); NEUTROPHILS # (AUTO) 4.7 K/uL (1.8-7.7); NEUTROPHILS % (AUTO) 59.3 % (40.0-70.0); PLATELET COUNT (AUTO) 247 K/uL (150-450); RED BLOOD CELL COUNT(AUTO) 4.24 MIL/uL (4.00-5.20); RED CELL DISTRIBUTION WIDTH 13.5 % (11.5-14.5)
[2019-12-30] MEDS ORDERED: IBUPROFEN 400 MG TABLET PO ONE (18:15)
[2019-12-30] MEDS ORDERED: ACETAMINOPHEN 325 MG TABLET PO ONE (18:15)
[2019-12-30 18:17] LABS: ANION GAP 8 mmol/L (8-16); CALCIUM, TOTAL 8.7 mg/dL (8.8-10.5); CARBON DIOXIDE 26 mmol/L (22-29); CHLORIDE 106 mmol/L (98-107); CREATININE 1.29 mg/dL (0.60-1.30); GLOMERULAR FILTR. RATE CALC 48 mL/min (>60); GLUCOSE,RANDOM 136 mg/dL (70-110); POTASSIUM 4.2 mmol/L (3.5-5.1); SODIUM SERUM 140 mmol/L (136-145); UREA NITROGEN, BLOOD 20 mg/dL (7-18)
[2019-12-30 18:28] LABS: ALANINE AMINOTRANSFERASE 16 U/L (12-78); ALKALINE PHOSPHATASE 144 U/L (46-116); ASPARTATE AMINOTRANSFERASE 9 U/L (15-37); BILIRUBIN,TOTAL 0.1 mg/dL (0.1-1.0); HCG,QUANTITATIVE < 1 mIU/mL (0-6); TOTAL PROTEIN, SERUM 6.8 g/dL (6.4-8.2)
[2019-12-30 18:49] LABS: AMPHET/METH SCREEN,URINE NEGATIVE (NEGATIVE); BARBITURATE SCREEN, URINE NEGATIVE (NEGATIVE); BENZODIAZEPINES SCREEN,URINE NEGATIVE (NEGATIVE); CANNABINOID SCREEN,URINE NEGATIVE (NEGATIVE); COCAINE SCREEN,URINE NEGATIVE (NEGATIVE); METHADONE SCREEN, URINE NEGATIVE (NEGATIVE); OPIATE SCREEN,URINE NEGATIVE (NEGATIVE); PHENCYCLIDINE SCREEN,URINE NEGATIVE (NEGATIVE)
[2019-12-30] MEDS ORDERED: LORazepam 2 MG TABLET PO PRN (19:30)
[2019-12-30] MEDS ORDERED: HALOPERIDOL 5 MG TABLET PO PRN (19:30)
[2019-12-30] MEDS: ZOLPIDEM TARTRATE 10 MG TABLET PO PRN (21:39)
[2019-12-30] MEDS ORDERED: -PHARMACY VACCINE NOTE- MISC ONE (22:00)
[2019-12-30] MEDS ORDERED: INFLUENZA VIRUS VACCINE QVS 2019-20 (3YR+)/PF 60 MCG/0.5 ML SYRINGE IM ONE (22:00)
[2019-12-30] MEDS ORDERED: ALBUTEROL SULFATE HFA 90 MCG/PUFF 8 GM INHALER IH PRN (23:15)
[2019-12-31 05:20] VITALS: BP 120/62
[2019-12-31] MEDS ORDERED: CloNIDine HCL 0.1 MG TABLET PO PRN (06:45)
[2019-12-31] MEDS ORDERED: ONDANSETRON HCL 4 MG TABLET PO PRN (06:45)
[2019-12-31] MEDS ORDERED: IBUPROFEN 600 MG TABLET PO PRN (06:45)
[2019-12-31] MEDS ORDERED: DOCUSATE SODIUM 100 MG CAPSULE PO PRN (06:45)
[2019-12-31] MEDS ORDERED: MAG HYDROX/AL HYDROX/SIMETH ES 30 ML SUSPENSION UDCUP PO PRN (06:45)
[2019-12-31] MEDS ORDERED: BENZOCAINE/MENTHOL LOZENGE MM PRN (06:45)
[2019-12-31] MEDS ORDERED: OMEPRAZOLE 20 MG CAPSULE PO PRN (06:45)
[2019-12-31] MEDS ORDERED: ALBUTEROL SULFATE HFA 90 MCG/PUFF 8 GM INHALER IH PRN (06:45)
[2019-12-31] MEDS ORDERED: MAGNESIUM HYDROXIDE SUSPENSION 30 ML UDCUP PO PRN (06:45)
[2019-12-31] MEDS ORDERED: PETROLATUM,WHITE 28 GM JELLY TP PRN (06:45)
[2019-12-31] MEDS ORDERED: LOPERAMIDE HCL 2 MG CAPSULE PO PRN (06:45)
[2019-12-31 07:58] LABS: CHOL/HDL RATIO 3.4 (3.9-5.7)
[2019-12-31 08:16] VITALS: BP 124/73
[2019-12-31 16:09] VITALS: BP 100/62
[2019-12-31] MEDS ORDERED: VALPROIC ACID 250 MG CAPSULE PO SCH (17:00)
[2019-12-31] MEDS: DIVALPROEX SODIUM 500 MG DR TABLET PO SCH (17:24)
[2019-12-31] MEDS: GABAPENTIN 300 MG CAPSULE PO SCH (17:24)
[2019-12-31] MEDS: BENZTROPINE MESYLATE 1 MG TABLET PO SCH (17:24)
[2019-12-31] MEDS: BACITRACIN 28.4 GM OINTMENT TP PRN (18:33)
[2019-12-31] MEDS: ZOLPIDEM TARTRATE 10 MG TABLET PO PRN (21:21)
[2019-12-31] MEDS: QUEtiapine FUMARATE 200 MG TABLET PO SCH (21:21)
[2020-01-01 03:49] VITALS: BP 123/66
[2020-01-01 08:30] VITALS: BP 119/72
[2020-01-01] MEDS: DIVALPROEX SODIUM 500 MG DR TABLET PO SCH ×2 (08:58→16:36)
[2020-01-01] MEDS: GABAPENTIN 300 MG CAPSULE PO SCH ×3 (08:58→16:37)
[2020-01-01] MEDS: BENZTROPINE MESYLATE 1 MG TABLET PO SCH ×2 (08:59→16:36)
[2020-01-01] MEDS: BACITRACIN 28.4 GM OINTMENT TP PRN ×2 (10:32→19:21)
[2020-01-01 16:06] VITALS: BP 112/62
[2020-01-01] MEDS: ACETAMINOPHEN 325 MG TABLET PO PRN (19:39)
[2020-01-01 19:42] VITALS: BP 122/75
[2020-01-01] MEDS: QUEtiapine FUMARATE 200 MG TABLET PO SCH (20:35)
[2020-01-01] MEDS: ZOLPIDEM TARTRATE 10 MG TABLET PO PRN (20:39)
[2020-01-02 05:47] VITALS: BP 152/98
[2020-01-02 08:19] VITALS: BP 145/85
[2020-01-02] MEDS: DIVALPROEX SODIUM 500 MG DR TABLET PO SCH (08:21)
[2020-01-02] MEDS: GABAPENTIN 300 MG CAPSULE PO SCH ×2 (08:21→12:24)
[2020-01-02] MEDS: BENZTROPINE MESYLATE 1 MG TABLET PO SCH (08:21)
[2020-01-02] MEDS: ACETAMINOPHEN 325 MG TABLET PO PRN (09:18)
== END 2020-01-02 13:50 | disposition home or self-care (01) | DRG 750 ==
LOC: EMS 16:55 → B3A 20:16
PROVIDERS: ADMIT Psychiatry & Neurology Psychiatry; ATTEND Psychiatry & Neurology Psychiatry
DX: F25.0 Schizoaffective disorder, bipolar type (principal); G40.909 Epilepsy, unspecified, not intractable, without status epilepticus; E03.9 Hypothyroidism, unspecified; K59.00 Constipation, unspecified; J45.909 Unspecified asthma, uncomplicated; F41.9 Anxiety disorder, unspecified; E78.00 Pure hypercholesterolemia, unspecified; F19.10 Other psychoactive substance abuse, uncomplicated; G47.00 Insomnia, unspecified; E78.5 Hyperlipidemia, unspecified; I10 Essential (primary) hypertension; Z72.0 Tobacco use; Z88.8 Allergy status to other drugs, medicaments and biological substances; Z91.013 Allergy to seafood; Z79.899 Other long term (current) drug therapy; Z23 Encounter for immunization
CPT/HCPCS: 87081; 90686; G0480; J3535